=== PATIENT | female | born 1960 | race Caucasian/White ===

== ENCOUNTER 2022-04-20 13:13 | Outpatient (CLI) | payer BC ==
[2022-04-20 14:09] LABS: #Basophils 0.1 10x3/uL (0.0-0.2); #Eosinphils 0.1 10x3/uL (0.0-0.5); #Monocytes 0.5 10x3/uL (0.0-1.1); #Neutrophils 5.1 10x3/uL (1.5-8.4); %Basophils 0.9 % (0.0-2.0); %Lymphocytes 27.6 % (18.0-47.0); %Monocytes 5.6 % (0.0-10.0); %Neutrophils 64.5 % (40.0-75.0); Hemoglobin 13.9 g/dL (12.0-15.5); Mean Corpuscular HGB CONC 33.3 g/dL (32.0-36.0); Mean Corpuscular Hemoglobin 30.3 pg (27.0-33.0); Mean Platelet Volume 9.5 fl (7.4-10.4); Platelet Count 260 10x3/uL (150-450); RBC Distribution Width 12.8 % (11.5-14.5); Red Blood Cell (RBC) Count 4.58 10x6/uL (3.90-5.03)
[2022-04-20 14:35] LABS: Anion Gap 14 mmol/L (10-20); BUN (Urea Nitrogen) 13 mg/dL (9.8-20.1); Calc. Creatinine Clearance 0 mL/min (70-130); Calcium 9.5 mg/dL (7.8-10.44); Carbon Dioxide 27 mmol/L (23-31); Chloride 104 mmol/L (98-107); Glucose 106 mg/dL (80-115); Potassium 3.6 mmol/L (3.5-5.1); Sodium 141 mmol/L (136-145)
== END 2022-04-20 13:14 | disposition home or self-care (01) ==
LOC: LABBT 13:13
PROVIDERS: ATTEND Orthopaedic Surgery
DX: Z01.812 Encounter for preprocedural laboratory examination (principal); M17.0 Bilateral primary osteoarthritis of knee; Z20.822 Contact with and (suspected) exposure to COVID-19
CPT/HCPCS: 80048; 85025; 87081; U0003; U0005

== ENCOUNTER 2022-04-25 05:21 | Observation (INO) | payer BC ==
[2022-04-23 13:16] VITALS: BMI 40.3
[2022-04-25] MEDS ORDERED: Sodium Chloride 0.9% 100 ML ONE ×2 (06:12→06:59)
[2022-04-25] MEDS ORDERED: Vancomycin (BATCH) 1.5 GRAM/300 ML BAG ONE (06:12)
[2022-04-25] MEDS ORDERED: Tranexamic Acid 1,000 MG/10 ML VIAL ONE (06:12)
[2022-04-25] MEDS ORDERED: fentaNYL Citrate/PF 100 MCG/2 ML SYRINGE ONE ×4 (06:15→10:19)
[2022-04-25] MEDS ORDERED: EPINEPHrine 1 MG/ML AMP ONE (06:22)
[2022-04-25] MEDS ORDERED: Bupivacaine 0.25% HCL 30 ML VIAL ONE (06:22)
[2022-04-25] MEDS ORDERED: Fentanyl 100 MCG/2 ML VIAL ONE (06:45)
[2022-04-25] MEDS ORDERED: Midazolam HCl 2 mg/2 ml Vial ONE (06:45)
[2022-04-25 06:49] LABS: PTT 28.6 sec (22.9-36.1); Prothrombin Time 13.3 sec (12.0-14.7)
[2022-04-25] MEDS ORDERED: CEFAZOLIN 2 GM VIAL ONE (06:59)
[2022-04-25] MEDS ORDERED: Ropivacaine 0.5% HCl/PF (150 MG/30 ML VIAL) ONE (07:15)
[2022-04-25] MEDS ORDERED: Acetaminophen 325 MG TAB PO PRN (07:18)
[2022-04-25] MEDS ORDERED: Zolpidem Tartrate 5 MG TAB PO PRN ×2 (07:18→08:15)
[2022-04-25] MEDS ORDERED: Promethazine HCl 25 MG/ML VIAL IM PRN ×3 (07:18→09:53)
[2022-04-25] MEDS ORDERED: Ondansetron PF 4 MG/2 ML Vial IVP PRN ×2 (07:18→08:15)
[2022-04-25] MEDS ORDERED: diphenhydrAMINE 25 MG CAP PO PRN (07:18)
[2022-04-25] MEDS ORDERED: Dexamethasone 20 MG/5 ML VIAL ONE (07:27)
[2022-04-25] MEDS ORDERED: PROPOFOL 200 MG/20 ML VIAL ONE (07:27)
[2022-04-25] MEDS ORDERED: Ondansetron PF 4 MG/2 ML Vial ONE (07:27)
[2022-04-25] MEDS ORDERED: Ketorolac Tromethamine 30 MG/ML VIAL ONE (07:27)
[2022-04-25] MEDS ORDERED: Lidocaine 1% PF 5 ML VIAL ONE (07:27)
[2022-04-25] MEDS ORDERED: Fentanyl 100 MCG/2 ML VIAL SLOW IVP PRN (08:03)
[2022-04-25] MEDS ORDERED: Ropivacaine 0.2% 550 ML 550 ML NERVE BLCK SCH (08:15)
[2022-04-25] MEDS ORDERED: traMADol HCl 50 MG TAB PO PRN ×2 (08:15)
[2022-04-25] MEDS ORDERED: HYDROcodone/Acetaminophen 10/325 mg Tablet PO PRN ×2 (08:15)
[2022-04-25] MEDS ORDERED: Promethazine HCl 25 MG/ML VIAL IVPB PRN (09:53)
[2022-04-25] MEDS ORDERED: Ondansetron HCl/PF 4 MG/2 ML Vial IVP PRN (09:53)
[2022-04-25] MEDS ORDERED: PACU-Morphine 4MG/ML VIAL SLOW IVP PRN (09:54)
[2022-04-25] MEDS: Sodium Chloride 0.9% 1,000 ML IV SCH ×2 (12:15→18:14)
[2022-04-25] MEDS: CEFAZOLIN 2 GM in Sodium Chloride 0.9% 100 ML IVPB SCH ×2 (14:50→22:54)
[2022-04-25] MEDS: Ketorolac Tromethamine 30 MG/ML VIAL IVP SCH ×3 (14:51→22:54)
[2022-04-25] MEDS: Aspirin 81 mg Enteric Coated Tablet PO SCH ×2 (14:52→20:25)
[2022-04-25] MEDS ORDERED: Vancomycin 1.5 GRAM/300 ML BAG 1.5 GM in Premix Bag 1 BAG IVPB SCH (20:00)
[2022-04-25] MEDS: Metoprolol Tartrate 25 MG TAB PO SCH (20:25)
[2022-04-25] MEDS ORDERED: Atorvastatin Calcium 10 MG TAB PO SCH (21:00)
[2022-04-26] MEDS: Sodium Chloride 0.9% 1,000 ML IV SCH (04:35)
[2022-04-26] MEDS: Ketorolac Tromethamine 30 MG/ML VIAL IVP SCH (05:46)
[2022-04-26 07:45] LABS: Hemoglobin 10.9 g/dL (12.0-16.0); Mean Corpuscular HGB CONC 33.4 g/dL (32.0-36.0); Mean Corpuscular Hemoglobin 31.9 pg (27.0-31.0); Mean Corpuscular Volume 95.4 fL (78.0-98.0); Mean Platelet Volume 7.6 fL (7.4-10.4); Platelet Count 211 thou/uL (130-400); RBC Distribution Width 11.7 % (11.5-14.5); Red Blood Cell (RBC) Count 3.42 mill/uL (4.20-5.40); White Blood Cell (WBC) Count 9.1 thou/uL (4.8-10.8)
[2022-04-26] MEDS ORDERED: Ferrous Gluconate 324 MG TAB PO SCH (08:00)
[2022-04-26] MEDS ORDERED: Multivitamin W/ Minerals 1 TAB PO SCH (09:00)
[2022-04-26] MEDS: Senokot S 8.6-50 MG TAB PO SCH ×2 (09:39→09:42)
[2022-04-26] MEDS: Loratadine 10 MG TAB PO SCH ×2 (09:39→09:43)
[2022-04-26] MEDS: Metoprolol Tartrate 25 MG TAB PO SCH (09:40)
[2022-04-26] MEDS: Aspirin 81 mg Enteric Coated Tablet PO SCH (09:40)
[2022-04-26 11:15] VITALS: BP 105/67; TEMP 97.8
== END 2022-04-26 12:00 | disposition home or self-care (01) ==
LOC: SDC 05:21 → SURG A 07:18 → EDSTATUS 13:30
PROVIDERS: ADMIT Orthopaedic Surgery; ATTEND Orthopaedic Surgery
PROC: 0SRC0J9 Replacement of Right Knee Joint with Synthetic Substitute, Cemented, Open Approach (ICD-10-PCS; principal; 2022-04-25)
PROC: 3E0T3BZ Introduction of Anesthetic Agent into Peripheral Nerves and Plexi, Percutaneous Approach (ICD-10-PCS; 2022-04-25)
DX: M17.0 Bilateral primary osteoarthritis of knee (principal); M21.161 Varus deformity, not elsewhere classified, right knee; I48.91 Unspecified atrial fibrillation; E78.5 Hyperlipidemia, unspecified; Z79.82 Long term (current) use of aspirin; Z79.899 Other long term (current) drug therapy; Z88.2 Allergy status to sulfonamides
CPT/HCPCS: 36415; 85027; 85610; 85730; 96374; 96375; 96376; A4306; C1713; C1776; G0378; J0171; J0690; J1100; J1885; J2250; J2405; J2704; J2795; J3010; J3370; J3490; J7050; S0020

== ENCOUNTER 2023-06-20 13:44 | Outpatient (CLI) | payer BC ==
[2023-06-20 15:37] LABS: #Basophils 0.1 10x3/uL (0.0-0.2); #Eosinphils 0.1 10x3/uL (0.0-0.5); #Monocytes 0.4 10x3/uL (0.0-1.1); #Neutrophils 4.4 10x3/uL (1.5-8.4); %Basophils 0.8 % (0.0-2.0); %Eosinophils 1.5 % (0.0-6.0); %Lymphocytes 31.3 % (18.0-47.0); %Monocytes 5.2 % (0.0-10.0); %Neutrophils 60.9 % (40.0-75.0); Hematocrit 41.3 % (34.9-44.5); Hemoglobin 13.4 g/dL (12.0-15.5); Mean Corpuscular HGB CONC 32.4 g/dL (32.0-36.0); Mean Corpuscular Hemoglobin 30.2 pg (27.0-33.0); Mean Platelet Volume 9.7 fl (7.4-10.4); Platelet Count 254 10x3/uL (150-450); RBC Distribution Width 12.6 % (11.5-14.5); Red Blood Cell (RBC) Count 4.44 10x6/uL (3.90-5.03); White Blood Cell (WBC) Count 7.3 10x3/uL (3.5-10.5)
[2023-06-20 15:52] LABS: Prothrombin Time 10.5 sec (9.5-12.1)
[2023-06-20 16:03] LABS: Anion Gap 12 mmol/L (10-20); BUN (Urea Nitrogen) 11 mg/dL (9.8-20.1); Calc. Creatinine Clearance 0 mL/min (70-130); Calcium 9.1 mg/dL (7.8-10.44); Carbon Dioxide 25 mmol/L (23-31); Chloride 107 mmol/L (98-107); Estimated GFR 87; Glucose 101 mg/dL (80-115); Potassium 3.9 mmol/L (3.5-5.1); Sodium 140 mmol/L (136-145)
== END 2023-06-20 13:45 | disposition home or self-care (01) ==
LOC: LABBT 13:44
PROVIDERS: ATTEND Orthopaedic Surgery
DX: Z01.818 Encounter for other preprocedural examination (principal); M17.12 Unilateral primary osteoarthritis, left knee
CPT/HCPCS: 80048; 85025; 85610; 87081; 93005; 93010

== ENCOUNTER 2023-06-25 05:43 | Observation (INO) | payer BC ==
[2023-06-20 14:28] VITALS: BMI 44.4
[2023-06-25] MEDS ORDERED: Sodium Chloride 0.9% 100 ML ONE ×2 (05:52→06:47)
[2023-06-25] MEDS ORDERED: Tranexamic Acid 1,000 MG/10 ML VIAL ONE (05:52)
[2023-06-25] MEDS ORDERED: VANCOMYCIN 2 GRAM/500 ML BAG 2 GM in Premix Bag 1 BAG IVPB SCH (06:00)
[2023-06-25] MEDS ORDERED: fentaNYL PF 100 MCG/2 ML SYRINGE ONE ×2 (06:16→06:17)
[2023-06-25] MEDS ORDERED: HYDROmorphone 0.5 MG/0.5 ML SYRINGE ONE (06:16)
[2023-06-25] MEDS ORDERED: EPINEPHrine 1 MG/ML AMP ONE ×2 (06:19→06:36)
[2023-06-25] MEDS ORDERED: Bupivacaine 0.25% HCL 30 ML VIAL ONE (06:19)
[2023-06-25] MEDS ORDERED: Midazolam HCl 2 mg/2 ml Vial ONE ×2 (06:23→06:35)
[2023-06-25] MEDS ORDERED: fentaNYL 50 mcg/mL 1 mL Vial ONE ×3 (06:35→09:36)
[2023-06-25] MEDS ORDERED: Bupivacaine PF 0.5% 30 ML VIAL ONE (06:36)
[2023-06-25] MEDS ORDERED: CEFAZOLIN 2 GM VIAL ONE (06:47)
[2023-06-25] MEDS ORDERED: PHENYLEPHRINE-NS 100 MCG/ML 10 ML SYRINGE ONE (07:15)
[2023-06-25] MEDS ORDERED: Lidocaine 1% PF 5 ML VIAL ONE (07:15)
[2023-06-25] MEDS ORDERED: Ketorolac Tromethamine 30 MG/ML VIAL ONE (07:15)
[2023-06-25] MEDS ORDERED: Ondansetron PF 4 MG/2 ML Vial ONE (07:15)
[2023-06-25] MEDS ORDERED: PROPOFOL 200 MG/20 ML VIAL ONE (07:15)
[2023-06-25] MEDS ORDERED: Dexamethasone 20 MG/5 ML VIAL ONE (07:15)
[2023-06-25] MEDS ORDERED: fentaNYL 50 mcg/mL 1 mL Vial SLOW IVP PRN (07:31)
[2023-06-25] MEDS ORDERED: Ondansetron PF 4 MG/2 ML Vial IVP PRN ×2 (07:45→09:54)
[2023-06-25] MEDS ORDERED: HYDROcodone/Acetaminophen 10/325 mg Tablet PO PRN ×2 (07:45)
[2023-06-25] MEDS ORDERED: traMADol HCl 50 MG TAB PO PRN ×2 (07:45)
[2023-06-25] MEDS ORDERED: Promethazine HCl 25 MG/ML VIAL IM PRN ×3 (07:45→09:54)
[2023-06-25] MEDS ORDERED: Ropivacaine 0.2% 550 ML 550 ML NERVE BLCK SCH (07:45)
[2023-06-25] MEDS ORDERED: Zolpidem Tartrate 5 MG TAB PO PRN ×2 (07:45→09:54)
[2023-06-25] MEDS ORDERED: HYDROmorphone 2 MG/ML VIAL SLOW IVP PRN (09:27)
[2023-06-25] MEDS ORDERED: Ondansetron HCl/PF 4 MG/2 ML Vial IVP PRN (09:27)
[2023-06-25] MEDS ORDERED: diphenhydrAMINE 25 MG CAP PO PRN (09:54)
[2023-06-25] MEDS ORDERED: Acetaminophen 325 MG TAB PO PRN (09:54)
[2023-06-25] MEDS ORDERED: Aspirin 81 mg Enteric Coated Tablet PO SCH (10:00)
[2023-06-25] MEDS ORDERED: Ferrous Gluconate 324 MG TAB PO SCH (10:15)
[2023-06-25] MEDS ORDERED: Senokot S 8.6-50 MG TAB PO SCH (10:15)
[2023-06-25] MEDS ORDERED: Multivitamin W/ Minerals 1 TAB PO SCH (10:15)
[2023-06-25] MEDS ORDERED: Tranexamic Acid 1,000 MG in Sodium Chloride 0.9% 100 ML IVPB SCH (10:30)
[2023-06-25] MEDS ORDERED: Meperidine HCl/PF 25 MG/ML VIAL ONE (10:36)
[2023-06-25] MEDS: Ketorolac Tromethamine 30 MG/ML VIAL IVP SCH ×3 (12:55→23:25)
[2023-06-25] MEDS: Sodium Chloride 0.9% 1,000 ML IV SCH ×2 (13:30→23:19)
[2023-06-25] MEDS: CEFAZOLIN 2 GM in Sodium Chloride 0.9% 100 ML IVPB SCH ×2 (15:25→23:20)
[2023-06-25] MEDS: Ferrous Gluconate 324 MG TAB PO SCH (20:19)
[2023-06-25] MEDS: Aspirin 81 mg Enteric Coated Tablet PO SCH (20:19)
[2023-06-25] MEDS: Senokot S 8.6-50 MG TAB PO SCH (20:20)
[2023-06-26] MEDS: Sodium Chloride 0.9% 1,000 ML IV SCH (03:46)
[2023-06-26 05:55] VITALS: TEMP 97.8
[2023-06-26] MEDS: Ketorolac Tromethamine 30 MG/ML VIAL IVP SCH (06:26)
[2023-06-26] MEDS: Ferrous Gluconate 324 MG TAB PO SCH (08:47)
[2023-06-26] MEDS: Aspirin 81 mg Enteric Coated Tablet PO SCH (08:47)
[2023-06-26] MEDS: Senokot S 8.6-50 MG TAB PO SCH (08:48)
[2023-06-26 08:50] LABS: Hematocrit 35.1 % (36.0-47.0); Hemoglobin 11.8 g/dL (12.0-16.0); Mean Corpuscular HGB CONC 33.6 g/dL (32.0-36.0); Mean Corpuscular Hemoglobin 31.4 pg (27.0-31.0); Mean Corpuscular Volume 93.4 fl (78.0-98.0); Mean Platelet Volume 9.8 fL (7.4-10.4); Platelet Count 212 10x3/uL (130-400); RBC Distribution Width 12.7 % (11.5-14.5); Red Blood Cell (RBC) Count 3.76 mill/uL (4.20-5.40); White Blood Cell (WBC) Count 11.9 10x3/uL (4.8-10.8)
[2023-06-26] MEDS ORDERED: Multivitamin W/ Minerals 1 TAB PO SCH (09:00)
[2023-06-26 09:02] VITALS: BP 100/66
== END 2023-06-26 11:40 | disposition home or self-care (01) ==
LOC: SDC 05:43 → SJJU 09:54
PROVIDERS: ADMIT Orthopaedic Surgery; ATTEND Orthopaedic Surgery
PROC: 0SRD0JZ Replacement of Left Knee Joint with Synthetic Substitute, Open Approach (ICD-10-PCS; principal; 2023-06-25)
DX: M17.12 Unilateral primary osteoarthritis, left knee (principal); M21.162 Varus deformity, not elsewhere classified, left knee; I48.91 Unspecified atrial fibrillation; E78.5 Hyperlipidemia, unspecified; I10 Essential (primary) hypertension; Z88.2 Allergy status to sulfonamides; Z96.651 Presence of right artificial knee joint; Z79.82 Long term (current) use of aspirin; Z79.899 Other long term (current) drug therapy
CPT/HCPCS: 36415; 85027; A4306; C1776; J0171; J1100; J1170; J1885; J2175; J2250; J2405; J2704; J2795; J3010; J3370; J3490; S0020